=== PATIENT | male | born 1990 | race Caucasian/White ===

== ENCOUNTER 2023-02-04 10:50 | Outpatient (CLI) | payer OTHER, SELFPAY ==
--- NOTE | 2023-02-04 11:08 | XRR_ITS ---
PROCEDURE INFORMATION: Exam: XR Right Hip Exam date and time: 02/04/2023 11:14 AM Age: 32 years old Clinical indication: Hip pain; Right hip; Additional info: R hip pain, to include the pelvis TECHNIQUE: Imaging protocol: Radiologic exam of the right hip. Views: 4 or more views of hip with pelvis when performed. COMPARISON: No relevant prior studies available. FINDINGS: Bones/joints: Unremarkable. No acute fracture. No significant arthritic changes. No acute osseous, joint, or soft tissue abnormality. Soft tissues: See Bones/joints finding. XR/XR hip RT 4V wo/w pel [id number] IMPRESSION: The findings are normal.
--- NOTE | 2023-02-04 11:08 | XRR_ITS ---
PROCEDURE INFORMATION: Exam: XR Right Ankle Exam date and time: 02/04/2023 11:14 AM Age: 32 years old Clinical indication: Pain; Ankle; Bilateral; Additional info: Bilateral ankle pain TECHNIQUE: Imaging protocol: Radiologic exam of the right ankle. Views: 3 or more views. COMPARISON: No relevant prior studies available. FINDINGS: Bones/joints: Normal. No fracture or dislocation. No acute osseous, joint, or soft tissue abnormality. Soft tissues: Normal. XR/XR ankle RT min 3V* [id number] IMPRESSION: The findings are normal.
--- NOTE | 2023-02-04 11:08 | XRR_ITS ---
PROCEDURE INFORMATION: Exam: XR Left Ankle Exam date and time: 02/04/2023 11:14 AM Age: 32 years old Clinical indication: Pain; Ankle; Bilateral; Additional info: Bilateral ankle pain TECHNIQUE: Imaging protocol: Radiologic exam of the left ankle. Views: 3 or more views. COMPARISON: No relevant prior studies available. FINDINGS: Bones/joints: Normal. No fracture or dislocation. No acute osseous, joint, or soft tissue abnormality. Soft tissues: Normal. XR/XR ankle LT min 3V* [id number] IMPRESSION: The findings are normal.
== END 2023-02-04 10:51 | disposition home or self-care (01) ==
PROVIDERS: PCP Family Medicine; Visit Provider Nurse Practitioner Family
DX: M25.551 Pain in right hip (principal); M25.571 Pain in right ankle and joints of right foot; M25.572 Pain in left ankle and joints of left foot
CPT/HCPCS: 73503; 73610